=== PATIENT | female | born 1940 | race Caucasian/White ===

== ENCOUNTER 2020-10-28 06:21 | Day surgery (SDC) | payer OTHER ==
[2020-10-28] MEDS ORDERED: Ringers Lactate 1,000 ML IV ONE (06:53)
[2020-10-28] MEDS ORDERED: NA CHLORIDE 0.9% 1,000 ML ONE (07:15)
[2020-10-28] MEDS ORDERED: LIDOCAINE 1% W/EPI 1:100,000 MDV 20 ML VIAL ONE (07:15)
[2020-10-28] MEDS ORDERED: LIDOCAINE 1% W/EPI 1:100,000 10 ML VIAL ONE (07:39)
[2020-10-28] MEDS ORDERED: propofoL 200 MG/20 ML VIAL IV ONE (07:40)
[2020-10-28] MEDS ORDERED: LIDOCAINE 2% MPF 5 ML VIAL ONE (07:41)
[2020-10-28] MEDS ORDERED: dexAMETHasone 4 MG/ML VIAL ONE (07:41)
[2020-10-28] MEDS ORDERED: ONDANSETRON 4 MG/2 ML VIAL ONE (07:41)
[2020-10-28] MEDS ORDERED: FENTANYL CITR 100 MCG/2 ML ONE (07:41)
[2020-10-28] MEDS ORDERED: KETOROLAC 30 MG/ML INJ ONE (07:41)
[2020-10-28 08:56] VITALS: BP 115/48; TEMP 97; O2SAT 99
--- NOTE | 2020-10-28 09:03 | OP ---
Date of Procedure: 10/28/2020 Surgeon: Evelyn Carbone MD Preoperative Diagnosis: Postmenopausal bleeding. Postoperative Diagnosis: Postmenopausal bleeding. Procedure Performed: Hysteroscopy, dilation and curettage. Anesthesia: MAC plus paracervical block. Specimens: Endometrial curettings. Finding: Endometrial cavity with a thick posterior wall sounding length was only 5.5 cm. The patien t has a stage II rectocele with . The uterus was small and deviated to the right and antef lexed. Complications: No complications. Drains: No drains. Estimated Blood Loss: Minimal. Condition: Stable. Indications: The patient is a 80-year-old female with postmenopausal bleeding. On transvaginal ultr asound her endometrium appeared to be thickened. She was consented for hysteroscopy, D and C. Medic al clearance was obtained for the procedure due to her comorbidities and especially her COPD and coug h. Description Of Procedure: After informed consent was re-verified today in the preop, her was present at the time. Questions and answers were done to her satisfaction and she was brought to the OR. She was placed in a supine fashion on the operating table and MAC was given. She was placed in a mandeep genny lithotomy position. Pelvic exam was performed and findings as above. Prepped with Betadine x3 w as done in the vulvovagina. Speculum placed to expose the cervix. Anterior lip injected with 1% lid ocaine mixed with 1:100,000 epinephrine, 5 cc was given here. Two Allis clamps were placed in 4 and 8 o'clock positions, 3 cc each was given. The SlimLine diagnostic hysteroscope with a 30-degree lens , normal saline was used for direct hysteroscopy. There was difficulty defining the internal os. Af ter careful examination, identifying it, the scope was removed. Gentle dilation was performed in lat eral action to enter the uterine cavity to dilate the cervix. Once the cervix was dilated at about 2 .5 cm. Then, the SlimLine hysteroscope was able to be passed without any problems into the uterine c avity. Both tubal ostia were visualized. Cavity was entirely visualized. No intracavitary tumors. However, there was thickened vascular posterior wall endometrial tissue that appeared to be sessile. The scope was removed, endometrial curettings were then performed with a 0 curette directing it to the posterior wall and retrieving the tissue that looked abnormal. Rest of the cavity completely unr emarkable. Scant curettings from here, sent for permanent pathology. All the instruments removed. Instrument, needle, and sponge counts correct. 15 mg of Toradol given for pain control. Counts lolita ect. The patient recovered from anesthesia in the OR and taken to day surgery in a stable condition. She has a 1 week followup appointment for pathology results with me. All postop instructions have been given to the patient. BAKARI/MING Voice ID: [id number] Report ID: [id number]
== END 2020-10-28 09:00 | disposition home or self-care (01) ==
LOC: OR 06:21
PROVIDERS: ATTEND Obstetrics & Gynecology
PROC: 0UDB7ZX Extraction of Endometrium, Via Natural or Artificial Opening, Diagnostic (ICD-10-PCS; 2020-10-28)
PROC: 0UJD8ZZ Inspection of Uterus and Cervix, Via Natural or Artificial Opening Endoscopic (ICD-10-PCS; 2020-10-28)
PROC: 0UB97ZX Excision of Uterus, Via Natural or Artificial Opening, Diagnostic (ICD-10-PCS; principal; 2020-10-28 07:30)
DX: N95.0 Postmenopausal bleeding (principal); N95.2 Postmenopausal atrophic vaginitis; J44.9 Chronic obstructive pulmonary disease, unspecified; F17.210 Nicotine dependence, cigarettes, uncomplicated; Z20.828 Contact with and (suspected) exposure to other viral communicable diseases; E78.00 Pure hypercholesterolemia, unspecified; M19.90 Unspecified osteoarthritis, unspecified site; H40.9 Unspecified glaucoma; N84.0 Polyp of corpus uteri; E78.5 Hyperlipidemia, unspecified
CPT/HCPCS: 88305; J1100; J2405; J2704; J3010; J7030; J7120; U0002

== ENCOUNTER 2021-09-03 06:28 | Day surgery (SDC) | payer OTHER ==
--- NOTE | 2021-09-02 15:29 | RAD REPORT ---
EXAM DESCRIPTION: RAD - Chest Pa And Lat (2 Views) - 09/02/2021 3:13 pm CLINICAL HISTORY: Pre Op Chest pain. COMPARISON: Chest Pa And Lat (2 Views) dated 09/02/2020; Chest Pa And Lat (2 Views) dated 12/26/2017; Chest Pa And Lat (2 Views) dated 05/05/2016; CHEST PA AND LAT 2 VIEW dated 10/07/2009 TECHNIQUE: PA and lateral views of the chest were obtained. FINDINGS: The lungs are hyperexpanded compatible with COPD. The heart is upper limit of normal in si ze. No fracture or aggressive bony process. IMPRESSION: COPD without acute process identified.
[2021-09-03] MEDS ORDERED: Ringers Lactate 1,000 ML IV ONE (07:06)
[2021-09-03] MEDS: CEFAZOLIN/NS 1gm 1 GM/50 ML BAG ONE ×2 (07:36→07:40)
[2021-09-03] MEDS ORDERED: FENTANYL CITR 100 MCG/2 ML ONE (07:43)
[2021-09-03] MEDS ORDERED: propofoL 200 MG/20 ML VIAL IV ONE (07:43)
[2021-09-03] MEDS ORDERED: MIDAZOLAM HCL 2 MG/2 ML INJ ONE (07:43)
[2021-09-03] MEDS ORDERED: LIDOCAINE 2% MPF 5 ML VIAL ONE (07:43)
[2021-09-03] MEDS ORDERED: EPHEDRINE SULF 50 MG/ML VIAL ONE (08:17)
[2021-09-03] MEDS ORDERED: Mastisol Adhesive Liq ONE (08:30)
[2021-09-03] MEDS ORDERED: KETOROLAC 30 MG/ML INJ ONE (08:38)
--- NOTE | 2021-09-03 08:52 | OP ---
Date of Procedure: 09/03/2021 Surgeon: Trip Beatty MD Title Agent: Murphy Jackson, surgical corsetier certified. Preoperative Diagnosis: Right groin mass. Postoperative Diagnosis: Right groin mass. Procedure: Incisional biopsy of right groin mass. Estimated Blood Loss: Minimal. Specimen: Right groin mass, likely enlarged lymph node. Findings: As above. Anesthesia: General. Complications: None. Disposition: The patient tolerated the procedure in stable condition and taken to Recovery in good g eneral condition. Procedure In Detail: The patient was brought to the OR and placed in supine position. General anest hesia begun. The patient was prepped and draped in the usual sterile fashion. Then, Marcaine 0.5% i nfiltrated over the large mass in the right groin approximately 6 x 4 cm. Then, a 3 cm incision made with 15 blade. Subcutaneous tissue divided and the mass identified and as it was large and over the neurovascular bundle, I opted to do just an incisional biopsy on this mass and 15 blade was used to excise approximately 2 x 1 cm area of the mass in the anterior portion. Bleeding was controlled with cautery and this was sent fresh to pathology and then minimal oozing was noted. Surgicel was applie d. The bleeding stopped. Then, wound irrigated, bleeding controlled cautery and then 3-0 chromic us ed to approximate the subcutaneous tissue and close the skin. Sterile dressing applied. The patient awakened and taken to Recovery in good general condition. Discharge Note: The patient will go to day surgery and home when stable. Disposition: Home. Condition: Stable. Discharge Instructions: Resume home medications and diet. Activity as tolerated. No heavy lifting. Remove outer dressing in 2 days. Shower. Keep Steri-Strips on at all times. Follow up in my offi ce in 1 week. Call for appointment. Tylenol No.3 one tablet q.4 p.r.n. pain. /MODL Voice ID: [id number] Report ID: [id number]
[2021-09-03] MEDS ORDERED: CODEINE 30MG/APAP 300MG TAB ONE (09:42)
[2021-09-03 09:56] VITALS: BP 104/45; TEMP 96.9
[2021-09-03 10:01] VITALS: O2SAT 96
== END 2021-09-03 09:38 | disposition home or self-care (01) ==
LOC: OR 06:28
PROVIDERS: ATTEND Surgery
PROC: 0YB Anatomical Regions, Lower Extremities, Excision (ICD-10-PCS; principal; 2021-09-03 07:30)
DX: C82.15 Follicular lymphoma grade II, lymph nodes of inguinal region and lower limb (principal); Z20.822 Contact with and (suspected) exposure to COVID-19
CPT/HCPCS: 93005; 88305; 71046; 11106; U0003; J2704; J2250; J3010; J0690; J7120